=== PATIENT | male | born 1995 | race Caucasian/White ===

== ENCOUNTER 2024-02-11 16:12 | Emergency (ER) | payer SELFPAY ==
[2024-02-11] MEDS: Diphtheria,Pertussis(Acell),Tetanus Vaccine 0.5 ML Syringe IM ONE (17:14)
[2024-02-11] MEDS: Bacitracin Oint 1 GM U/D Packet TOP ONE (17:15)
== END 2024-02-11 17:24 | disposition home or self-care (01) ==
LOC: JP.ED 16:12
DX: H11.31 Conjunctival hemorrhage, right eye (principal); Z23 Encounter for immunization; W50.3XXA Accidental bite by another person, initial encounter
CPT/HCPCS: 90471; 90715; 99283; 99283-25

== ENCOUNTER 2024-06-12 11:28 | Emergency (ER) | payer OTHER ==
[2024-06-12] MEDS: LORazepam 0.5 MG Tab PO ONE (12:17)
[2024-06-12] MEDS: Lidocaine/Epineph/Tetracaine 3 ML Syringe TOP ONE (12:18)
[2024-06-12] MEDS: Lidocaine 1% 10 ML MDV INJECT ONE (12:25)
== END 2024-06-12 13:16 | disposition home or self-care (01) ==
LOC: JP.ED 11:28
DX: S01.511A Laceration without foreign body of lip, initial encounter (principal); W22.8XXA Striking against or struck by other objects, initial encounter
CPT/HCPCS: 12011; 99282; A9270